=== PATIENT | female | born 1950 | race Caucasian/White ===

== ENCOUNTER 2021-01-07 07:49 | Day surgery (SDC) | payer MEDICARE, BC ==
[2021-01-07] MEDS ORDERED: Sodium Chloride 0.9% 10 ML Syringe FLUSH PRN (08:00)
[2021-01-07] MEDS ORDERED: Midazolam 1 MG/ML 2 ML SDV ONE ×2 (08:31→09:17)
[2021-01-07] MEDS ORDERED: Propofol 200 MG/20 ML SDV ONE ×2 (08:31→09:17)
[2021-01-07] MEDS: Lactated Ringers 1,000 ML IV SCH (08:37)
[2021-01-07] MEDS ORDERED: Scopolamine 1.5 MG Transdermal Patch ONE ×2 (09:17→09:38)
[2021-01-07] MEDS ORDERED: Ondansetron 4 MG/2 ML SDV ONE (09:17)
--- NOTE | 2021-01-07 09:19 | PCM.HPR ---
H & P Addendum review - H & P Addendum Review Date of Original H & P: 12/25/20 Date Reviewed: 01/07/21 Time Reviewed: 09:00 Patient was Examined: No Changes
--- NOTE | 2021-01-07 09:53 | PCM.OPNOTE ---
- General Post-Op/Procedure Note Date of Surgery/Procedure: 01/07/21 Operative Procedure(s): L CTR Pre Op Diagnosis: L CTS Post-Op Diagnosis: Same Anesthesia Technique: Local, MAC Primary Surgeon: Carlin Renner Anesthesia Provider: Shaylee VICKERS in mLs: 0 Complications: None Condition: Good
--- NOTE | 2021-01-07 12:08 | OR ---
Date of Procedure: PREOPERATIVE DIAGNOSIS: Left carpal tunnel syndrome. POSTOPERATIVE DIAGNOSIS: Left carpal tunnel syndrome. PROCEDURE: Left carpal tunnel release. ANESTHESIA: Local with IV sedation. HISTORY: This is a 70-year-old female who has been scheduled for left carpal tunnel release. She recently had an EMG which shows moderate left median neuropathy. The patient's symptoms correlate with this. I have met with her prior to the procedure to discuss risks and complications, and informed consent was obtained. PROCEDURE IN DETAIL: The patient was brought to the procedure room where IV sedation was administered. Left hand and forearm were prepped and draped sterilely. 3 mL of 1% lidocaine was used to infiltrate the palmar crease. An incision was made in the crease over the transverse carpal ligament and extended through the subcutaneous tissue and palmar aponeurosis. The transverse carpal ligament was identified and sharply incised until the median nerve was visible. The ligament was split distally into the palm and then proximally into the wrist. Finger palpation and inspection reveals the ligament to be completely transected. The nerve appears healthy. Skin was closed with interrupted 4-0 Prolene vertical mattress sutures. Antibiotic ointment and a bulky sterile pressure dressing were applied. The patient tolerated the procedure well. Blood loss none. She returned to postanesthesia in stable condition. ALICE GUTIERREZ MD /[id number]
== END 2021-01-07 11:00 | disposition home or self-care (01) ==
LOC: LL.SDS 07:49
PROVIDERS: ATTEND Surgery
DX: G56.02 Carpal tunnel syndrome, left upper limb (principal); G20 Parkinson's disease; E78.5 Hyperlipidemia, unspecified; E74.39 Other disorders of intestinal carbohydrate absorption; R20.2 Paresthesia of skin
CPT/HCPCS: 01810; A9270-GY; J2250; J2405; J2704; J7120

== ENCOUNTER 2023-07-27 08:10 | Day surgery (SDC) | payer MEDICARE ==
[~2023-07-27 08:10] MED LIST: Midazolam 1 MG/ML 2 ML SDV ONE; Propofol 200 MG/20 ML SDV ONE
[2023-07-27] MEDS ORDERED: Lactated Ringers 1,000 ML IV SCH (08:15)
[2023-07-27] MEDS ORDERED: Sodium Chloride 0.9% 10 ML Syringe FLUSH PRN (08:15)
[2023-07-27 10:57] VITALS: BP 126/89; PULSE 69
== END 2023-07-27 11:45 | disposition home or self-care (01) ==
LOC: LL.SDS 08:10
PROVIDERS: ATTEND Surgery
DX: Z12.11 Encounter for screening for malignant neoplasm of colon (principal); E78.00 Pure hypercholesterolemia, unspecified; G20.A1 Parkinson's disease without dyskinesia, without mention of fluctuations; Z79.899 Other long term (current) drug therapy; Z98.890 Other specified postprocedural states
CPT/HCPCS: J2250; J2704; J7120

== ENCOUNTER 2024-02-10 16:38 | Emergency (ER) | payer MEDICARE ==
[2024-02-10] MEDS ORDERED: Sodium Chloride 0.9% 10 ML Syringe FLUSH PRN (16:46)
[2024-02-10] MEDS ORDERED: Naloxone 0.4 MG/ML SDV IVPUSH PRN (16:48)
[2024-02-10] MEDS: Morphine 2 MG/ML SYRINGE IVPUSH ONE (16:54)
[2024-02-10] MEDS: Ondansetron 4 MG/2 ML SDV IVPUSH ONE (16:55)
[2024-02-10 17:03] LABS: BASOPHILS ABSOLUTE AUTO 0.01 K/uL (0.00-0.20); HEMATOCRIT 40.4 % (34.0-46.0); HEMOGLOBIN 13.5 g/dL (11.7-15.5); LYMPHOCYTES ABSOLUTE AUTO 1.08 K/uL (0.50-3.50); MEAN CORPUSCULAR HEMOGLOBIN 29.9 pg (28.2-33.3); MEAN CORPUSCULAR HGB CONC 33.4 g/dL (31.7-36.0); MEAN CORPUSCULAR VOLUME 89.4 fL (84.0-98.0); MONOCYTES ABSOLUTE AUTO 0.89 K/uL (0.00-1.00); MONOCYTES PERCENT AUTO 4.1 % (2.0-14.0); NEUTROPHILS ABSOLUTE AUTO 19.78 K/uL (1.40-7.00); NEUTROPHILS PERCENT AUTO 90.9 % (45.0-80.0); PLATELET COUNT,PLT 365 K/uL (150-350); RED BLOOD CELL COUNT 4.52 M/uL (3.77-5.09); RED CELL DISTRIBUTION WIDTH 13.3 % (11.2-14.1); WHITE BLOOD CELL COUNT,WBC 21.8 K/uL (4.0-10.2)
[2024-02-10] MEDS: Morphine 4 MG/ML Syringe IVPUSH ONE (17:09)
[2024-02-10 17:20] LABS: ALBUMIN 3.9 g/dL (3.4-5.0); ANION GAP 18.3 meq/L (7-15); BILIRUBIN TOTAL 0.9 mg/dL (0.2-1.0); CARBON DIOXIDE,CO2 21.5 mmol/L (21.0-32.0); CREATININE 1.06 mg/dL (0.51-1.17); EST CRCL DRUG DOSING (CG) 34.97 mL/min; MAGNESIUM 1.3 mg/dL (1.8-2.4); POTASSIUM,K 3.8 mmol/L (3.5-5.1)
[2024-02-10] MEDS: Iopamidol 612 MG/ML 100 ML Bottle IVPUSH STA (17:22)
[2024-02-10] MEDS: Sodium Chloride 0.9% 1,000 ML IV ONE (17:24)
[2024-02-10] MEDS: Magnesium Sulfate/Water 2 GM in Premix Bag 1 BAG IV ONE (17:32)
[2024-02-10] MEDS: HYDROmorphone 0.5 MG/0.5 ML Syringe IVPUSH ONE (17:36)
[2024-02-10] MEDS: Piperacillin/Tazobactam 3.375 GM in Sodium Chloride 0.9% 100 ML IV ONE (18:32)
[2024-02-10] MEDS: HYDROmorphone 1 MG/ML Syringe IVPUSH ONE ×2 (18:32→20:08)
[2024-02-10] MEDS: Sodium Chloride 0.9% 1,000 ML IV SCH (19:31)
== END 2024-02-10 20:25 ==
LOC: LL.ED 16:38
DX: K35.30 Acute appendicitis with localized peritonitis, without perforation or gangrene (principal); E78.00 Pure hypercholesterolemia, unspecified; Z79.899 Other long term (current) drug therapy
CPT/HCPCS: 36415; 74177; 80053; 83605; 83735; 84484; 85025; 93005; 96361; 96365; 96366; 96368; 96375; 96376; 99285-25; J1170; J2270; J2405; J2543; J3475; J3490; J7030; Q9967